=== PATIENT | female | born 1965 | race Caucasian/White ===

== ENCOUNTER 2021-07-07 07:31 | Outpatient (CLI) | payer SELFPAY ==
--- NOTE | 2021-07-07 07:50 | XR_ITS ---
WS: [id number] XR ankle RT min 3V* [id number] REASON FOR EXAM: PAIN IN JOINT FINDINGS: Joint spaces of the right ankle are intact and well preserved. No fracture or focal bone abnormality. No soft tissue abnormality. XR/XR ankle RT min 3V* [id number] IMPRESSION: No significant abnormality identified.
--- NOTE | 2021-07-07 07:51 | XR_ITS ---
WS: [id number] XR foot RT min 3V* [id number] REASON FOR EXAM: PAIN IN JOINT FINDINGS: No acute fracture or focal bone lesion. Mild joint space narrowing with subchondral sclerosis and small marginal osteophytes in the DIP and P IP joints of the toes. Normal sesamoid bones. The joint spaces of the midfoot and hindfoot are intact and relatively well-preserved. Small enthesophyte from the anterior plantar calcaneus. 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 Small calcaneal enthesophyte as above.
== END 2021-07-07 07:32 | disposition home or self-care (01) ==
PROVIDERS: PCP Family Medicine; Visit Provider Electrodiagnostic Medicine
DX: M19.071 Primary osteoarthritis, right ankle and foot (principal)
CPT/HCPCS: 73610; 73630

== ENCOUNTER 2021-09-01 12:01 | Emergency (ER) | payer OTHER, SELFPAY ==
[2021-09-01 12:08] VITALS: BP 103/68; PULSE 70; RESP 20; TEMP 36.4; O2SAT 96; BMI 22.2
--- NOTE | 2021-09-01 12:39 | CT_ITS ---
WS: [id number] CT ABDOMEN AND PELVIS NONCONTRAST HISTORY: Left Flank pain, trouble urinating TECHNIQUE: Imaging performed through the abdomen and pelvis. Coronal and sagittal reformats are submi tted. All CT scans at [facility] use at least one of these dose optimization techniques: auto mated exposure control; mA and/or kV adjustment per patient size (includes targeted exams where dose is matched to clinical indication); or iterative reconstruction. DLP: 803.58 mGy.cm COMPARISON: 11/11/2008 Lower thorax: Lung bases are clear. Visualized heart is normal. Small hiatal hernia. 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 Previously desc ribed hemangioma in the RIGHT lobe the liver is not appreciated on this unenhanced study. No bile evens t dilatation. Gallbladder: Prior cholecystectomy. Pancreas: Normal size and attenuation. Normal pancreatic duct. No pancreatitis or mass. Spleen: Normal. Adrenal glands: Normal. No mass. Right kidney: Normal size kidney with no mass or hydronephrosis. Nonobstructing calcification 2 mm up per pole. Left kidney: Mild enlargement and edema with mild hydronephrosis. LEFT ureter is mildly dilated secon ashia to 3 mm calcification near the UV junction. Aorta: Mild atherosclerosis abdominal aorta with no aneurysm. No free fluid, intraperitoneal air or significant lymphadenopathy. GI tract: Prior appendectomy. No GI tract obstruction. No mucosal thickening or edema. Abdominal wall: Negative. No hernia. Pelvis: Nondistended urinary bladder. No free fluid or adenopathy. Osseous structures: Unremarkable. CT/CT kidney stone [id number] IMPRESSION: 1. Mild LEFT hydroureteronephrosis secondary to 3 mm UV junction calcification . 2. Prior cholecystectomy. 3. Prior appendectomy.
--- NOTE | 2021-09-01 12:41 | W.ED.BACK ---
Documented by User: JOVANY Lopez 09/01/21 15:38 HPI - Back Pain/Injury General: Chief Complaint: Back Pain/Injury Stated Complaint: Cant urinate, abd pain and lower back pain Time Seen by Provider: 09/01/21 12:17 History of Present Illness: Patient is a 56-year-old female comes to the ED with left flank pain. Pain was acute in onset around 11 AM this morning. She rates her pain currently a 10 out of 10 and she has had some nausea and a couple episodes of emesis due to pain. She has a history of kidney stones and says this pain is just like her past kidney stone. She endorses feeling like she needs to urinate but is having trouble urinating. She has not taken anything for pain before coming to the ED today. Denies any fever or bowel symptoms. Associated symptoms: Reports nausea and vomiting; Deny abdominal pain, chills, dysuria, fatigue, fever(s) or hematuria Review of Systems Const: Denies: fever(s), chills or fatigue Eyes: Denies: change in vision or eye discomfort ENMT: Denies: throat pain, odynophagia, nasal discharge or nasal congestion Card: Denies: chest pain, palpitations, edema, swelling of feet/ankles, dyspnea on exertion or orthopnea Resp: Denies: dyspnea, productive cough or non-productive cough GI: Reports: nausea and vomiting; Denies: abdominal pain, diarrhea, constipation or hematochezia : Reports: flank pain and difficulty voiding; Denies: dysuria or hematuria Musc: Denies: neck pain, back pain or extremity swelling Skin/Breast: Denies: rash or new lesions Neuro: Denies: headache(s), numbness in extremities or weakness in extremities [facility] ED PFSH: Medical History Kidney stone No pertinent family history Viral pharyngitis Social History Smoking and tobacco status: current every day smoker Physical Exam Const: COMMON NORMALS: patient oriented x3 and alert GENERAL APPEARANCE: cooperative HENMT: COMMON NORMALS: normocephalic HEAD & SCALP: normocephalic MOUTH: Normal oral and palatal mucosa present THROAT: posterior oropharynx normal and uvula midline Neck/C-Spine: COMMON NORMALS: supple GENERAL: Yes normal visual inspection Resp: COMMON NORMALS: normal respiratory effort, No retractions, No use of accessory muscles and clear to auscultation bilaterally AUSCULTATION: clear to auscultation bilaterally Cardio: COMMON NORMALS: regular rate, regular rhythm, S1 normal heart sound present, S2 normal heart sound present, No gallops present (Cardio), No clicks present (Cardio), No murmurs present (Cardio) and Peripheral pulses 2+ throughout RATE: regular rate RHYTHM: regular rhythm HEART SOUNDS: S1 normal heart sound present and S2 normal heart sound present PERIPHERAL PULSES: Peripheral pulses 2+ throughout GI: COMMON NORMALS: Normal to inspection, nondistended, normoactive bowel sounds present, Soft to palpation, non-tender and no masses PALPATION: Yes Soft to palpation : BLADDER/KIDNEY EXAM: Yes CVA tenderness on the left Back/Pelvis: GENERAL BACK: Yes CVA tenderness Extremity: COMMON NORMALS: normal to inspection Neuro: COMMON NORMALS: patient oriented x3 and moves all extremities SENSORIUM/ORIENTATION: Yes alert Skin: GENERAL SKIN EXAM: dry skin Course Vital Signs: Vital signs: Vital Signs Temperature 97.6 F 09/01/21 12:08 Pulse Rate 76 09/01/21 15:48 Respiratory Rate 15 09/01/21 15:48 Blood Pressure 91/58 09/01/21 15:48 Pulse Oximetry 93 09/01/21 15:48 MDM - Back Pain/Injury Medical Decision Making Patient is a 56-year-old female comes to the ED with left flank pain and trouble urinating. Symptoms were acute in onset at 11 AM today. She has a history of kidney stones and says this is similar to her past kidney stone. Vitals stable. Patient has left CVA tenderness but the rest of exam is benign. White blood cell count 12.3. The rest of her labs are unremarkable. UA shows some signs of a UTI as well. CT of abdomen shows 3 mm left UVJ stone with mild left hydroureteronephrosis. I placed order with case management for patient to be referred to Dr. Mercado for follow-up. She was given IV fluids, nausea and pain meds and her symptoms were controlled here in the ED and she was stable for discharge home. Patient was discharged home with a prescription for an antibiotic, pain meds and nausea meds. She was instructed to strain her urine to catch a stone. Return to ED precautions given. Patient understood and agreed with plan. Labs I reviewed the patient's lab results. : 09/01/21 13:05 09/01/21 13:05 Radiology Impressions Abdomen/Pelvis CT 09/01/21 12:39 IMPRESSION: 1. Mild LEFT hydroureteronephrosis secondary to 3 mm UV junction calcification. 2. Prior cholecystectomy. 3. Prior appendectomy. Laboratory Results WBC 12.3 10^3/uL (4.0-10.0) H 09/01/21 13:05 RBC 4.91 10^6/uL (4.1-5.3) 09/01/21 13:05 Hgb 15.3 g/dL (11.5-15.3) 09/01/21 13:05 Hct 46.2 % (37.0-47.0) 09/01/21 13:05 MCV 94.1 fl (81-99) 09/01/21 13:05 MCH 31.2 pg (28.0-34.0) 09/01/21 13:05 MCHC 33.1 g/dL (30.0-36.0) 09/01/21 13:05 RDW 12.6 % (12.1-15.1) 09/01/21 13:05 Plt Count 249 10^3/cmm (130-400) 09/01/21 13:05 MPV 9.6 fL (7.4-10.4) 09/01/21 13:05 Neut % (Auto) 77.4 % 09/01/21 13:05 Lymph % (Auto) 16.1 % 09/01/21 13:05 Greene % (Auto) 4.8 % 09/01/21 13:05 Eos % (Auto) 1.1 % 09/01/21 13:05 Baso % (Auto) 0.2 % 09/01/21 13:05 Neut # (Auto) 9.48 10^3/uL (1.8-7.7) H 09/01/21 13:05 Lymph # (Auto) 2.0 10^3/uL (0.8-4.8) 09/01/21 13:05 Greene # (Auto) 0.6 10^3/uL (0.2-0.9) 09/01/21 13:05 Eos # (Auto) 0.1 10^3/uL (0.0-0.8) 09/01/21 13:05 Baso # (Auto) 0.0 10^3/uL (0.0-0.1) 09/01/21 13:05 Nucleated RBC % (auto) 0 % 09/01/21 13:05 Nucleated RBCs # 0.0 /100WBC 09/01/21 13:05 Sodium 139 mmol/L (136-145) 09/01/21 13:05 Potassium 4.0 mmol/L (3.5-5.1) 09/01/21 13:05 Chloride 103 mmol/L (98-107) 09/01/21 13:05 Carbon Dioxide 25 mmol/L (22-29) 09/01/21 13:05 Anion Gap 15.0 (5-19) 09/01/21 13:05 BUN 4 mg/dL (6-20) L 09/01/21 13:05 Creatinine 0.6 mg/dL (0.5-0.9) 09/01/21 13:05 GFR Calculation 103.4 mL/min (90-130) 09/01/21 13:05 Glucose 138 mg/dL (65-115) H 09/01/21 13:05 Calculated Osmolality 287 mOsm/kg (285-295) 09/01/21 13:05 Calcium 9.5 mg/dL (8.5-10.5) 09/01/21 13:05 Total Bilirubin 0.4 mg/dL (0.15-1.2) 09/01/21 13:05 AST 13 U/L (0-32) 09/01/21 13:05 ALT 14 U/L (0-33) 09/01/21 13:05 Alkaline Phosphatase 93 IU/L (35-105) 09/01/21 13:05 Total Protein 7.1 g/dL (6.6-8.7) 09/01/21 13:05 Albumin 4.1 g/dL (3.5-5.2) 09/01/21 13:05 Globulin 3.0 g/dL (1.3-4.6) 09/01/21 13:05 Lipase 27 U/L (13-60) 09/01/21 13:05 Urine Color Yellow (Yellow) 09/01/21 14:55 Urine Appearance Hazy (CLEAR) A 09/01/21 14:55 Urine pH 5 (5-7) 09/01/21 14:55 Ur Specific [place] 1.030 (1.005-1.030) 09/01/21 14:55 Urine Protein Neg (Negative) 09/01/21 14:55 Urine Glucose (UA) Norm (Normal) 09/01/21 14:55 Urine Ketones Negative (Negative) 09/01/21 14:55 Urine Blood 3+ (Negative) H 09/01/21 14:55 Urine Nitrate Negative (Negative) 09/01/21 14:55 Urine Bilirubin Neg (Negative) 09/01/21 14:55 Urine Urobilinogen Norm mg/dL (Negative) 09/01/21 14:55 Ur Leukocyte Esterase Negative (Negative) 09/01/21 14:55 Urine RBC 50-80 /hpf (0-2) H 09/01/21 14:55 Urine WBC 10-15 /hpf (0-5) H 09/01/21 14:55 Ur Squamous Epith Cells 0-4 /hpf (0-5) H 09/01/21 14:55 Calcium Oxalate Crystal 3 /hpf 09/01/21 14:55 Amorphous Sediment Not Reportable 09/01/21 14:55 Urine Bacteria 2+ /hpf (NONE) H 09/01/21 14:55 Urine Mucus 1+ /hpf 09/01/21 14:55 Discharge Plan Discharge Patient Disposition: Home Clinical Impression: Kidney stone on left side Condition: Stable Prescriptions: New Naprosyn 500 mg tablet 500 mg PO BID PRN (Reason: pain) Qty: 20 0RF ondansetron 4 mg tablet,disintegrating 4 mg PO Q8H PRN (Reason: nausea and vomiting) Qty: 10 0RF Bactrim DS 800-160 mg tablet 1 tab PO BID 5 Days Qty: 10 0RF No Action trazodone 100 mg tablet 100 mg PO DAILY 0RF simvastatin 10 mg tablet 10 mg PO DAILY 0RF Discharge Orders: Discharge ED (Routine); Ordered 09/01/21 Ordered By: Hussein Cortez Referrals: George Rios, DO [Primary Care Provider] - Discharge Diet: Regular Discharge Activity: Increase activity as tolerated Patient Instructions: Kidney Stones (ED), How to Strain Your Urine (ED), Opioid Safety Activity Restrictions/Additional Instructions: Follow-up with medical provider as directed. Case management should be contacting you in the next several days to set up an appointment with Dr. Mercado the urologist. Strain urine to catch stone and drink lots of fluid to stay hydrated and help pass stone. Take medications as prescribed. You can take ibuprofen or Aleve for any pain or fevers. Return to the ER or your medical provider if condition worsens. Please read and understand discharge instructions. If any questions, please ask. Coding Level of Care Code ED Skill Training Program Coordinator for Chg Fwd Exam Comprehensive Documented by User: Lalo Hollins DO 09/04/21 09:59 HPI - Back Pain/Injury General: Chief Complaint: Back Pain/Injury Stated Complaint: Cant urinate, abd pain and lower back pain Time Seen by Provider: 09/01/21 12:17 [facility] ED PFSH: Medical History Kidney stone No pertinent family history Viral pharyngitis Social History Smoking and tobacco status: current every day smoker Course Vital Signs: Vital signs: Vital Signs Temperature 97.6 F 09/01/21 12:08 Pulse Rate 76 09/01/21 15:48 Respiratory Rate 15 09/01/21 15:48 Blood Pressure 91/58 09/01/21 15:48 Pulse Oximetry 93 09/01/21 15:48 MDM - Back Pain/Injury Medical Decision Making Patient is a 56-year-old female comes to the ED with left flank pain and trouble urinating. Symptoms were acute in onset at 11 AM today. She has a history of kidney stones and says this is similar to her past kidney stone. Vitals stable. Patient has left CVA tenderness but the rest of exam is benign. White blood cell count 12.3. The rest of her labs are unremarkable. UA shows some signs of a UTI as well. CT of abdomen shows 3 mm left UVJ stone with mild left hydroureteronephrosis. I placed order with case management for patient to be referred to Dr. Mercado for follow-up. She was given IV fluids, nausea and pain meds and her symptoms were controlled here in the ED and she was stable for discharge home. Patient was discharged home with a prescription for an antibiotic, pain meds and nausea meds. She was instructed to strain her urine to catch a stone. Return to ED precautions given. Patient understood and agreed with plan. Chart reviewed and patient discussed with midlevel. Agree with assessment and plan. Labs : 09/01/21 13:05 09/01/21 13:05 Radiology Impressions Abdomen/Pelvis CT 09/01/21 12:39 IMPRESSION: 1. Mild LEFT hydroureteronephrosis secondary to 3 mm UV junction calcification. 2. Prior cholecystectomy. 3. Prior appendectomy. Laboratory Results WBC 12.3 10^3/uL (4.0-10.0) H 09/01/21 13:05 RBC 4.91 10^6/uL (4.1-5.3) 09/01/21 13:05 Hgb 15.3 g/dL (11.5-15.3) 09/01/21 13:05 Hct 46.2 % (37.0-47.0) 09/01/21 13:05 MCV 94.1 fl (81-99) 09/01/21 13:05 MCH 31.2 pg (28.0-34.0) 09/01/21 13:05 MCHC 33.1 g/dL (30.0-36.0) 09/01/21 13:05 RDW 12.6 % (12.1-15.1) 09/01/21 13:05 Plt Count 249 10^3/cmm (130-400) 09/01/21 13:05 MPV 9.6 fL (7.4-10.4) 09/01/21 13:05 Neut % (Auto) 77.4 % 09/01/21 13:05 Lymph % (Auto) 16.1 % 09/01/21 13:05 Greene % (Auto) 4.8 % 09/01/21 13:05 Eos % (Auto) 1.1 % 09/01/21 13:05 Baso % (Auto) 0.2 % 09/01/21 13:05 Neut # (Auto) 9.48 10^3/uL (1.8-7.7) H 09/01/21 13:05 Lymph # (Auto) 2.0 10^3/uL (0.8-4.8) 09/01/21 13:05 Greene # (Auto) 0.6 10^3/uL (0.2-0.9) 09/01/21 13:05 Eos # (Auto) 0.1 10^3/uL (0.0-0.8) 09/01/21 13:05 Baso # (Auto) 0.0 10^3/uL (0.0-0.1) 09/01/21 13:05 Nucleated RBC % (auto) 0 % 09/01/21 13:05 Nucleated RBCs # 0.0 /100WBC 09/01/21 13:05 Sodium 139 mmol/L (136-145) 09/01/21 13:05 Potassium 4.0 mmol/L (3.5-5.1) 09/01/21 13:05 Chloride 103 mmol/L (98-107) 09/01/21 13:05 Carbon Dioxide 25 mmol/L (22-29) 09/01/21 13:05 Anion Gap 15.0 (5-19) 09/01/21 13:05 BUN 4 mg/dL (6-20) L 09/01/21 13:05 Creatinine 0.6 mg/dL (0.5-0.9) 09/01/21 13:05 GFR Calculation 103.4 mL/min (90-130) 09/01/21 13:05 Glucose 138 mg/dL (65-115) H 09/01/21 13:05 Calculated Osmolality 287 mOsm/kg (285-295) 09/01/21 13:05 Calcium 9.5 mg/dL (8.5-10.5) 09/01/21 13:05 Total Bilirubin 0.4 mg/dL (0.15-1.2) 09/01/21 13:05 AST 13 U/L (0-32) 09/01/21 13:05 ALT 14 U/L (0-33) 09/01/21 13:05 Alkaline Phosphatase 93 IU/L (35-105) 09/01/21 13:05 Total Protein 7.1 g/dL (6.6-8.7) 09/01/21 13:05 Albumin 4.1 g/dL (3.5-5.2) 09/01/21 13:05 Globulin 3.0 g/dL (1.3-4.6) 09/01/21 13:05 Lipase 27 U/L (13-60) 09/01/21 13:05 Urine Color Yellow (Yellow) 09/01/21 14:55 Urine Appearance Hazy (CLEAR) A 09/01/21 14:55 Urine pH 5 (5-7) 09/01/21 14:55 Ur Specific [place] 1.030 (1.005-1.030) 09/01/21 14:55 Urine Protein Neg (Negative) 09/01/21 14:55 Urine Glucose (UA) Norm (Normal) 09/01/21 14:55 Urine Ketones Negative (Negative) 09/01/21 14:55 Urine Blood 3+ (Negative) H 09/01/21 14:55 Urine Nitrate Negative (Negative) 09/01/21 14:55 Urine Bilirubin Neg (Negative) 09/01/21 14:55 Urine Urobilinogen Norm mg/dL (Negative) 09/01/21 14:55 Ur Leukocyte Esterase Negative (Negative) 09/01/21 14:55 Urine RBC 50-80 /hpf (0-2) H 09/01/21 14:55 Urine WBC 10-15 /hpf (0-5) H 09/01/21 14:55 Ur Squamous Epith Cells 0-4 /hpf (0-5) H 09/01/21 14:55 Calcium Oxalate Crystal 3 /hpf 09/01/21 14:55 Amorphous Sediment Not Reportable 09/01/21 14:55 Urine Bacteria 2+ /hpf (NONE) H 09/01/21 14:55 Urine Mucus 1+ /hpf 09/01/21 14:55 Discharge Plan Discharge Patient Disposition: Home Clinical Impression: Kidney stone on left side Condition: Stable Prescriptions: New Naprosyn 500 mg tablet 500 mg PO BID PRN (Reason: pain) Qty: 20 0RF ondansetron 4 mg tablet,disintegrating 4 mg PO Q8H PRN (Reason: nausea and vomiting) Qty: 10 0RF Bactrim DS 800-160 mg tablet 1 tab PO BID 5 Days Qty: 10 0RF No Action trazodone 100 mg tablet 100 mg PO DAILY 0RF simvastatin 10 mg tablet 10 mg PO DAILY 0RF Discharge Orders: Discharge ED (Routine); Ordered 09/01/21 Ordered By: Hussein Cortez Referrals: George Rios, [Primary Care Provider] - Discharge Diet: Regular Discharge Activity: Increase activity as tolerated Patient Instructions: Kidney Stones (ED), How to Strain Your Urine (ED), Opioid Safety Activity Restrictions/Additional Instructions: Follow-up with medical provider as directed. Case management should be contacting you in the next several days to set up an appointment with Dr. Mercado the urologist. Strain urine to catch stone and drink lots of fluid to stay hydrated and help pass stone. Take medications as prescribed. You can take ibuprofen or Aleve for any pain or fevers. Return to the ER or your medical provider if condition worsens. Please read and understand discharge instructions. If any questions, please ask. Coding Level of Care Code ED Skill Training Program Coordinator for Kimmie Fwd Exam Comprehensive
[2021-09-01 13:10] VITALS: RESP 14; O2SAT 95
[2021-09-01] MEDS: ondansetron 2 mg/ML SDV 2 mL 4 MG IVP (13:10)
[2021-09-01] MEDS: morphine 4 mg/mL SDV 1 mL IVP (13:10)
[2021-09-01] MEDS: sodium chloride 0.9% 1,000 ML 999 ML IV (13:10)
[2021-09-01 13:12] LABS: Basophils % 0.2 %; Eosinophils # 0.1 10^3/uL (0.0-0.8); Eosinophils % 1.1 %; Hematocrit 46.2 % (37.0-47.0); Hemoglobin 15.3 g/dL (11.5-15.3); Lymphocytes % 16.1 %; Mean Corpuscular HGB Conc 33.1 g/dL (30.0-36.0); Mean Corpuscular Hemoglobin 31.2 pg (28.0-34.0); Mean Corpuscular Volume 94.1 fl (81-99); Mean Platelet Volume 9.6 fL (7.4-10.4); Monocytes # 0.6 10^3/uL (0.2-0.9); Monocytes % 4.8 %; Neutrophils # 9.48 10^3/uL (1.8-7.7); Neutrophils % 77.4 %; Nucleated Red Blood Cells % 0 %; Platelet Count 249 10^3/cmm (130-400); Red Blood Count 4.91 10^6/uL (4.1-5.3); Red Cell Distribution Width 12.6 % (12.1-15.1); White Blood Count 12.3 10^3/uL (4.0-10.0)
[2021-09-01 13:35] LABS: Alanine Aminotransferase 14 U/L (0-33); Albumin Level 4.1 g/dL (3.5-5.2); Alkaline Phosphatase 93 IU/L (35-105); Blood Urea Nitrogen 4 mg/dL (6-20); Calcium 9.5 mg/dL (8.5-10.5); Carbon Dioxide 25 mmol/L (22-29); Chloride 103 mmol/L (98-107); Glomerular Filtration Rate 103.4 mL/min (90-130); Glucose 138 mg/dL (65-115); Lipase 27 U/L (13-60); Osmolality Calculated 287 mOsm/kg (285-295); Sodium 139 mmol/L (136-145); Total Bilirubin 0.4 mg/dL (0.15-1.2); Total Protein 7.1 g/dL (6.6-8.7)
[2021-09-01 13:40] LABS: Aspartate Amino Transferase 13 U/L (0-32)
[2021-09-01 13:49] VITALS: RESP 15
[2021-09-01] MEDS: metoclopramide 5 mg/mL SDV 2 mL 10 MG IVP (13:49)
[2021-09-01] MEDS: HYDROmorphone 1 mg/mL INJ 1 mL IVP (13:49)
[2021-09-01 14:13] VITALS: BP 103/68; PULSE 79; RESP 15; O2SAT 91
[2021-09-01 15:09] LABS: Add Urine Microscopic? YES; Bilirubin Urine Neg (Negative); Blood Urine 3+ (Negative); Glucose Urine UA Norm (Normal); Ketones Urine Negative (Negative); Leukocyte Esterase Urine Negative (Negative); Nitrate Urine Negative (Negative); Protein Urine Neg (Negative); Urine Appearance Hazy (CLEAR); Urine Color Yellow (Yellow); Urobilinogen Urine Norm (Negative); pH Urine 5 (5-7)
[2021-09-01 15:19] LABS: RBC Urine 50-80 /hpf (0-2)
[2021-09-01 15:20] LABS: Add Urine Culture? Yes; Bacteria Urine 2+ /hpf; Calcium Oxalate Crystals Urine 3 /hpf; Mucus Urine 1+ /hpf; Squamous Epithelial Cell Urine 0-4 /hpf (0-5)
[2021-09-01] MEDS: ketorolac 30 mg/mL INJ IVP (15:35)
[2021-09-01 15:48] VITALS: BP 91/58; PULSE 76; RESP 15; O2SAT 93
--- NOTE | 2021-09-04 12:41 | DCPLANNER ---
Addendum entered by Staci Alexander 10/02/21 09:59: utility sales and service manager was contacted by the urology clinic stating that clinic, scheduled appt for 10/03/21 to evaluate stone-notified pt. of appt. and she stated she did not need appt due to passing stone. Appt. cancelled for 10/03/21. Original Note: utility sales and service manager had message to schedule a follow up appointment for patient with urology. utility sales and service manager sent patients information to the front office staff at urology. Patients information will be printed and reviewed. Clinic will call patient with appointment information.
== END 2021-09-01 15:45 | disposition home or self-care (01) ==
PROVIDERS: Emergency Provider Physician Assistant; PCP Family Medicine
DX: N20.0 Calculus of kidney (principal)
CPT/HCPCS: 74176; 80053; 81001; 83690; 85025; 87077; 87086; 87186; 96361; 96374; 96375; 99284; J1170; J1885; J2270; J2405; J2765; J7030

== ENCOUNTER → 2023-10-28 07:35 | Outpatient (BNVA) | payer OTHER, SELFPAY | PROVIDERS: PCP Family Medicine; Visit Provider Family Medicine | DX: Z00.00 Encounter for general adult medical examination without abnormal findings (principal) | CPT/HCPCS: 80053; 80061; 85025 ==

== ENCOUNTER 2024-10-28 06:37 | Outpatient (CLI) | payer OTHER, SELFPAY ==
[2024-10-28 07:38] LABS: Hematocrit 45.7 % (36-47); Hemoglobin 15.00 g/dL (11.27-16.99); Mean Corpuscular HGB Conc 32.8 g/dL (30-55); Mean Corpuscular Hemoglobin 30.8 pg (27-33); Mean Corpuscular Volume 93.8 fl (85-98); Nucleated Red Blood Cells % 0 %; Platelet Count 246 10^3/cmm (157-399); Red Blood Count 4.87 10^6/uL (3.85-5.65); White Blood Count 6.53 10^3/uL (3.29-11.43)
[2024-10-28 07:56] LABS: Alanine Aminotransferase 15 U/L (0-33); Albumin Level 3.9 g/dL (3.5-5.2); Alkaline Phosphatase 109 U/L (35-105); Anion Gap 14.9 (5-19); Aspartate Amino Transferase 14 U/L (0-32); Blood Urea Nitrogen 4 mg/dL (6-20); Calcium 9.6 mg/dL (8.5-10.5); Carbon Dioxide 27 mmol/L (22-29); Chloride 101 mmol/L (98-107); Cholesterol 187 mg/dL (0-200); Globulin 3.1 g/dL (1.3-4.6); Glucose 99 mg/dL (65-115); HDL Cholesterol 49 mg/dL (60-100); Osmolality Calculated 285 mOsm/kg (285-295); Potassium 3.9 mmol/L (3.5-5.1); Sodium 139 mmol/L (136-145); Total Protein 7.0 g/dL (6.6-8.7); Triglycerides 104 mg/dL (0-150)
== END 2024-10-28 06:38 | disposition home or self-care (01) ==
PROVIDERS: PCP Family Medicine; Visit Provider Family Medicine
DX: Z00.00 Encounter for general adult medical examination without abnormal findings (principal)
CPT/HCPCS: 36415; 80053; 80061; 85025